=== PATIENT | female | born 2000 | race Asian ===

== ENCOUNTER 2019-02-28 20:35 | Emergency (ER) | payer BC, OTHER ==
[~2019-02-28] VITALS: Ht 152.4 cm; Wt 52.1 kg
--- NOTE | 2019-02-28 21:04 | NUR ---
Patient sitting in room next to significant other. Patient encouraged to change into hospital gown. Patient given privacy. Returned to room, placed on monitor. Spo2, hr and blood pressure within normal limits. Patient reports having passed out previously but never with fatigue that the patient is currently experiencing. Provider to bedside, patient responding, but slow and extremely quietly. Friend at bedside reports patient being in car, passing out. Arousing to verbal stimuli and then driving to the ER. Patient resting comfortably but expressing concern over homework due. Patient also states she suspects she is dehydrated because "I just forget to." Orders received. Awaiting imaging and labs.
[2019-02-28 21:25] LABS: BASOPHILS # (AUTO) 0.06 x10^3/uL (0-0.3); BASOPHILS % (AUTO) 1 % (0-1); EOSINOPHILS # (AUTO) 0.23 x10^3/uL (0-0.8); EOSINOPHILS % (AUTO) 2 % (1-7); LYMPHOCYTES # (AUTO) 4.13 x10^3/uL (1-6.1); LYMPHOCYTES % (AUTO) 40 % (22-44); MD NO; MEAN CORPUSCULAR HEMOGLOBIN 29.9 pg (27.0-34.8); MEAN CORPUSCULAR VOLUME 90.7 fL (80-100); MEAN PLATELET VOLUME 7.3 fL (7.4-10.4); MONOCYTES # (AUTO) 0.53 x10^3/uL (0-1.4); MONOCYTES % (AUTO) 5 % (2-9); NEUTROPHILS % (AUTO) 52 % (42-75); PLATELET COUNT 373 x10^3/uL (130-400); RED BLOOD COUNT 4.54 x10^6/uL (3.82-5.3); RED CELL DISTRIBUTION WIDTH 13.1 % (9.6-15.2)
[2019-02-28 21:37] LABS: ANION GAP 5 mmol/L (5-15); CALCIUM 8.6 mg/dL (8.5-10.1); CHLORIDE 107 mmol/L (98-107); CREATININE 0.88 mg/dL (0.55-1.02)
[2019-02-28 22:17] VITALS: BP 103/62
== END 2019-02-28 22:20 | disposition home or self-care (01) ==
LOC: EDBD 20:35 → ED 22:05
DX: R55 Syncope and collapse (principal)
CPT/HCPCS: 36415; 80048; 82040; 84703; 85025; 93005; 99284

== ENCOUNTER 2020-02-14 18:21 | Emergency (ER) | payer OTHER ==
[~2020-02-14] VITALS: Ht 152.4 cm; Wt 48.7 kg
[2020-02-14 19:25] LABS: BASOPHILS % (AUTO) 1 % (0-1); EOSINOPHILS % (AUTO) 14 % (1-7); LYMPHOCYTES % (AUTO) 32 % (22-44); MEAN CORPUSCULAR HEMOGLOBIN 29.2 pg (27.0-34.8); MEAN CORPUSCULAR HGB CONC 32.7 g/dL (32.4-35.8); MEAN PLATELET VOLUME 7.1 fL (7.4-10.4); MONOCYTES % (AUTO) 5 % (2-9); NEUTROPHILS % (AUTO) 50 % (42-75); PLATELET COUNT 420 x10^3/uL (130-400); RED BLOOD COUNT 5.04 x10^6/uL (3.82-5.3); RED CELL DISTRIBUTION WIDTH 12.3 % (9.6-15.2)
[2020-02-14 19:37] LABS: ALANINE AMINOTRANSFERASE 21 U/L (12-78); ALBUMIN 4.1 g/dL (3.4-5.0); ANION GAP 7 mmol/L (5-15); CALCIUM 9.7 mg/dL (8.5-10.1); CHLORIDE 108 mmol/L (98-107)
[2020-02-14 19:38] LABS: MICROSCOPIC NOT IND
[2020-02-14 19:42] LABS: ALKALINE PHOSPHATASE 66 U/L (45-117); BILIRUBIN,TOTAL 0.3 mg/dL (0.2-1.0); CREATININE 0.87 mg/dL (0.55-1.02)
[2020-02-14 20:16] LABS: MD SCAN
--- NOTE | 2020-02-14 20:59 | NUR ---
PT STATES HAVING LEFT SIDED AB PAIN THAT RADIATES TO RIGHT SIDE INTERMITTENTLY FOR PAST 2 WEEKS. PAIN WORSE AFTER EATING, DENIES N/V. 6/10 PAIN AT THIS TIME. RESTING IN BED, PLACED ON MONITORS, AWAITING RECHECK
[2020-02-14] MEDS ORDERED: MAALOX/HYOSCYAMINE/LIDOCAINE 45 ML BTL ONE (21:30)
[2020-02-14] MEDS ORDERED: MAALOX/HYOSCYAMINE/LIDOCAINE 45 ML BTL PO ONE (21:30)
--- NOTE | 2020-02-14 22:21 | NUR ---
ULTRASOUND AT BEDSIDE, PT LAYING IN GURNEY COMFORTABLY
--- NOTE | 2020-02-14 22:44 | NUR ---
STATES 0/10 PAIN AFTER GI COCTAIL ADMINISTRATION, RESTING COMFORTABLY IN BED
[2020-02-14 23:44] VITALS: BP 104/53
== END 2020-02-14 23:48 | disposition home or self-care (01) ==
LOC: ED 21:38
DX: K29.00 Acute gastritis without bleeding (principal)
CPT/HCPCS: 36415; 74021; 76700; 80053; 81003; 83690; 84703; 85025; 99285